=== PATIENT | male | born 1960 | race Caucasian/White ===

== ENCOUNTER 2021-05-19 07:13 | Outpatient (CLI) | payer MEDICARE, MEDICAID, SELFPAY ==
[2021-05-19 07:29] VITALS: BMI 40.6
--- NOTE | 2021-05-19 07:35 | ECG_ITS ---
[facility] Test Date: 2021-05-19 Pat Name: Francisco Amaro Jr Department: Room: Gender: Male Wall [employer] Department Supervisor: : 1960 Requested By: Bhumika Hopper Order Number: [id number] Laura MD: Bhumika Hopper M.D. Interpretive Statements NAME OF STUDY: LEXISCAN SESTAMIBI STRESS TEST INDICATION: Dyspnea on exertion PROCEDURE: At the baseline, the blood pressure was 197/110 mmHg, oxygen saturation 96% with a heart rate of 59 bpm. The electrocardiogram showed normal sinus rhythm, normal axis with normal ST and T's. The Lexiscan was infused over a period of 20 seconds. A total of 0.4 milligrams of Lexiscan was infused. The stress phase was continued for a total of 5 minutes. Heart rate at the end of the stress phase was 78 bpm, oxygen saturation 95% with a blood pressure of 193/94 mmHg. The EKG at the peak infusion revealed sinus rhythm with no significant ST-T wave changes. Interpretation limited by artifact at peak stress. The study was terminated to protocol completion. Sestamibi was injected 20 seconds after the Lexiscan infusion. Blood pressure at the end of the recovery phase was 185/93 mmHg, oxygen saturation 94% with a heart rate of 71 beats per minute. CONCLUSION: 1. No significant EKG changes with the LexiScan infusion. 2. No LexiScan induced chest pain or cardiac arrhythmia. 3. Baseline hypertension with normal blood pressure and heart rate response. 4. Sestamibi/sestamibi perfusion scan pending; see separate report. Electronically Signed On 05-22-2021 18:42:11 FLAT CUTTER by Bhumika Hopper M.D. [id number]
--- NOTE | 2021-05-19 07:35 | NMCV_ITS ---
NM isadora perf SPECT r/s* [id number] Francisco Amaro Jr Age: 61 Gender: M : 1960 Exam Date: 05/19/2021 08:38 Ordering Phys: Bhumika Hopper MD ([email or web address]) Technologist: SREEKANTH Barton Exam Location: [facility] Indications: HYPERTENSION STRESS TEST Please see separate stress test report in [facility] for full findings IMAGE PROTOCOL Rest/Stress 1 Lexiscan Day Radiopharmaceutical Dose (mCi) Administration Site Administered by Rest: Tc-99m 10.6 IV SREEKANTH Whelan Sestamibi Stress:Tc-99m 33.0 IV SREEKANTH Whelan Sestamibi Rest: 19-May-2021 60 Discovery 630 Stress: 19-May-2021 30 Discovery 630 0.4mg Lexiscan. Images obtained in supine and prone position. SPECT RESULTS Technical Quality: Excellent Raw Data Analysis: Normal Image Corrections: No attenuation or motion correction applied Summed Stress Score: 10 Summed Rest Score: 4 Summed Difference Score: 6 PERFUSION FINDINGS Medium sized reversible perfusion abnormality of moderate severity of basal to apical inferior, basal to mid inferolateral, mid anterolateral montero on stress images. FUNCTIONAL RESULTS (calculated via Gated SPECT) Stress Image LV EF (%): 58 Stress EDV (mL):170 TID: 1.02 Stress ESV (mL):71 FUNCTIONAL FINDINGS: The left ventricle is normal in size. Transient Ischemia Dilatation of 1. There is normal left ventricular systolic function. The left ventricular ejection fraction is normal with a value of 58%. Possible mild hypokinesis of basal inferior wall. Increased end-diastolic volume. IMPRESSIONS 1. Medium sized reversible perfusion abnormality of moderate severity of basal to apical inferior, basal to mid inferolateral, mid anterolateral montero. 2. This likely represent ischemia in right coronary artery territory. 3. The left ventricular ejection fraction is normal with a value of 58%. 4. Possible mild hypokinesis of basal inferior wall. 5. No prior similar studies to compare. Bhumika Hopper MD (Electronically Signed) Final Date: 22 May 2021 19:00 S
[2021-05-19] MEDS: regadenoson 0.4 Mg/5 ml Syringe IVP (09:59)
[2021-05-19 10:00] VITALS: BP 185/93; PULSE 69
== END 2021-05-19 07:14 | disposition home or self-care (01) ==
LOC: CDL 07:14
PROVIDERS: PCP Family Medicine; Visit Provider Internal Medicine Cardiovascular Disease
DX: R06.09 Other forms of dyspnea (principal); I10 Essential (primary) hypertension; R94.39 Abnormal result of other cardiovascular function study
CPT/HCPCS: 78452; 93017; A9500; J2785

== ENCOUNTER → 2021-08-15 11:35 | Outpatient (BNVA) | payer MEDICARE, MEDICAID, SELFPAY | PROVIDERS: PCP Family Medicine; Referring Provider Internal Medicine Cardiovascular Disease; Visit Provider Internal Medicine Cardiovascular Disease | DX: I48.0 Paroxysmal atrial fibrillation (principal); R06.00 Dyspnea, unspecified; R06.02 Shortness of breath; R07.9 Chest pain, unspecified; Z86.79 Personal history of other diseases of the circulatory system; Z98.890 Other specified postprocedural states; I11.0 Hypertensive heart disease with heart failure; I50.32 Chronic diastolic (congestive) heart failure; Z20.822 Contact with and (suspected) exposure to COVID-19 | CPT/HCPCS: 80048; 85025; 85610; 87635 ==

== ENCOUNTER 2021-08-17 05:52 | Outpatient (CLI) | payer MEDICARE, MEDICAID, SELFPAY ==
[2021-08-17] VITALS (13 sets, daily range): BP systolic 125–163; BP diastolic 75–111; PULSE 66–91; RESP 16–28; TEMP 36.3; O2SAT 90–96; BMI 40.6
--- NOTE | 2021-08-17 06:00 | XACV_ITS ---
Exam Room: 2 Ht: 183 cm Wt: 139 kg BSA: 2.72 m2 Gender: Male : 1960 Any Known Allergies: No known allergies Exam Priority: Routine Procedure(s): Procedure Description: Diagnostic procedure Procedure Description: Coronary Angiography Diagnostic Cath Status: Elective Diagnostic Findings * Left Main has no disease. * Circumflex has no disease. * Proximal Left Anterior Descending: luminal irregularities 20% stenosis, TERESA: 3 flow. * Distal Right Coronary Artery: luminal irregularities 20% stenosis, TERESA: 3 flow. * Posterior Descending Right: minimal 30% stenosis, TERESA: 3 flow. * Coronary angiography shows right dominance. Conclusions 1. There is minimal coronary artery disease with two vessel disease. Recommendations * Continue current medical management and risk factor modification. Clinical Evaluation EBL: 5mL-10mL Procedural Details Procedure Consent Obtained. Admit Source: Out Patient. Pre-Procedure Time Out. Identified patient by full name and date of as verbalized by the patient/guarantor. Does the consent match the physician's order: Yes. Accurate & Complete Informed Consent: Yes. Inpatient/Outpatient History & Physical on Chart: Yes. If H&P is completed, is and addenduem needed: No; If yes, is the addendum complete: N/A. Visualize and Verify Site with Patient/Guarantor: N/A. Relevant Radiology Images available: N/A. The risks, benefits, and alternatives of sedation and/or procedure were discussed by physician. The patient agrees to continue. Procedure started. [facility] Clinical Fraility Score: 3: Managing Well. [employer] Indications: Worsening Angina. Chest Pain Symptom Assessment: Atypical Angina. Correct patient, site and procedure confirmed by cath team. Current diagnosis: Chest Pain, Abnormal stress test. PERRLA. Strong, equal hand bodily injury adjuster bilaterally. Lungs clear x 5 lobes. IV Site on Arrival: 20 gauge in the left anticubital. IV Fluids: 0.9% NaCl at KVO. 550 mL infused prior to general laborer. Pre Procedural Pulses: bilateral radial was 2+. Pre Procedural Pulses: bilateral posterior tibial was 1+. Pre Procedural Pulses: bilateral dorsalis pedis was 1+. Oxygen started at 2liters/min via nasal canula. right radial was prepped with chloroprep then draped in the usual sterile fashion. right groin was prepped with chloroprep then draped in the usual sterile fashion. Baseline sample Acquired. HR: 76 BPM. Physician notified. Physician arrived. Physician scrubbed in. Immediate Pre-Procedure Time Out. Correct Patient: Yes; Correct Procedure: Yes; Correct Site: Yes; Correct Patient Position: Yes; Correct Supplies: Yes; Dried Flammable Prep: Yes; Blood Products Available: No;. Lidocaine 1% infiltrated to the right radial. Arterial access obtained. A 5 israeli Jose Miguel catheter in over wire. standard wire out. Multiple views taken of right coronary artery. Catheter removed over the standard wire. A 5 israeli TIG catheter in over wire. Multiple views taken of left coronary artery. Catheter removed over the standard wire. wire removed. Post Procedure: Pulses reassessed and unchanged. PERRLA. Strong, equal hand bodily injury adjuster bilaterally. No VTE prophylaxis required. Medication's Wasted: Lidocaine 1% = 18 mL. Medication's Wasted: Nitro = 49.8 mg. Medication's Wasted: Heparin = 1000 mL. Total IV fluids: 46.4 mL. Medication's Wasted: Other = Versed1 mg. Medication's Wasted: Other = fentanyl 50 mcg. A TR Band was successful obtaining hemostatsis at the Right Radial artery insertion site. Post-op diagnosis: Normal Coronaries. Complications: None. Estimated blood loss: 5mL-10mL. Responsiveness - Normal response to verbal stimuli; alert and oriented, PERRLA. Airway - Unaffected, no intervention required; spontaneous ventilation. Circulation: W/N/L, pulses unchanged. Nausea/Vomiting: No. Procedure completed. Patient transferred by wheelchair to CPRU. Access Site Site: Right Radial artery Sheath Size: 6 Fr Hemostasis Method: TR Band Hemostasis Success: Successful Procedure Medications Start: 7:54 AM Stop: 7:54 AM Medication: Versed Amount: 1 mg Route: I.V. Start: 7:56 AM Stop: 7:56 AM Medication: Fentanyl Amount: 50 mcg Route: I.V. Start: 7:58 AM Stop: 7:58 AM Medication: Versed Amount: 1 mg Route: I.V. Start: 8:05 AM Stop: 8:05 AM Medication: Nitrogylcerin Amount: 200 mcg Route: I.A. Start: 8:11 AM Stop: 8:11 AM Medication: Versed Amount: 1 mg Route: I.V. Start: 8:11 AM Stop: 8:11 AM Medication: Heparin Amount: 5000 units Route: I.V. I, the attending physician, have reviewed and verified all procedure medications. Yes, all medications given per verbal order History/Risk Factors Hypertension: Yes Dyslipidemia: Yes Peripheral Arterial Disease (PAD): No Myocardial Infarction (AR): No Obesity: Yes Renal Disease: No Prior Interventions PCI: No CABG: No Valve Surgery: No Report Signatures Finalized by Frandy Franklin MD on 08/26/2021 02:57 PM
[2021-08-17] MEDS: diphenhydrAMINE 50 mg Capsule PO (06:33)
--- NOTE | 2021-08-17 07:52 | W.PM.OPSUD ---
Surgery/Procedure H&P Update DATE OF PROCEDURE: August 17, 2021 DATE H&P PERFORMED: 07/21/21 PRIMARY INDICATION FOR PROCEDURE: Abnormal stress test worsening of shortness of breath with angina PLANNED PROCEDURE: Operation Date: 08/17/21 07:00 Proposed Procedures p Cardiac Catheterization(Left) - Frandy Franklin MD PATIENT REASSESSED PRIOR TO SEDATION, WITH NO CHANGE NOTED: Yes AIRWAY EVAL/ANESTHESIA PLAN: ASA II and Risks, benefits & alternatives of sedation and/or procedure discussed ADDITIONAL INFORMATION: All risk and alternative for the procedure was explained. Patient understand risk for stroke major minor bleed urgent emergent bypass surgery vascular surgery hematoma pseudoaneurysm bruising arrhythmia. He has history of atrial fibrillation take Eliquis. He understand risk of bleeding with the Plavix. He is a candidate for DAPT. He would like to proceed with it
--- NOTE | 2021-08-17 08:39 | PC.NURSE ---
received pt from cath lab nurse post diagnostic [facility]. pt complains of no pain. states he hungry though. ordered breakfast. pt has tr band on right wrist with distal pulse palpable. pt and family have both been educated on restrictions of right wrist and will be continued to be educated throughout recovery. plan to dc at 3 hrs as long as band removal is successful. pt placed on monitor and will be monitored per protocol.
== END 2021-08-17 11:23 | disposition home or self-care (01) ==
PROVIDERS: PCP Family Medicine; Visit Provider Internal Medicine Cardiovascular Disease
DX: I25.10 Atherosclerotic heart disease of native coronary artery without angina pectoris (principal); E78.5 Hyperlipidemia, unspecified; E66.01 Morbid (severe) obesity due to excess calories; Z68.41 Body mass index [BMI] 40.0-44.9, adult; I48.0 Paroxysmal atrial fibrillation; Z79.01 Long term (current) use of anticoagulants; G47.33 Obstructive sleep apnea (adult) (pediatric); N40.0 Benign prostatic hyperplasia without lower urinary tract symptoms; E11.22 Type 2 diabetes mellitus with diabetic chronic kidney disease; I13.0 Hypertensive heart and chronic kidney disease with heart failure and stage 1 through stage 4 chronic kidney disease, or unspecified chronic kidney disease; N18.30 Chronic kidney disease, stage 3 unspecified; I50.32 Chronic diastolic (congestive) heart failure; Z87.891 Personal history of nicotine dependence; Z79.82 Long term (current) use of aspirin; Z79.84 Long term (current) use of oral hypoglycemic drugs
CPT/HCPCS: 36415; 93454; C1769; C1887; C1894; J1644; J2250; J3010; J3490; J7030; Q0163; Q9967

== ENCOUNTER → 2021-08-18 09:58 | Outpatient (BNVA) | payer MEDICARE, MEDICAID, SELFPAY | PROVIDERS: PCP Family Medicine; Visit Provider Internal Medicine Cardiovascular Disease | DX: Z98.890 Other specified postprocedural states (principal) | CPT/HCPCS: 80048 ==

== ENCOUNTER → 2021-10-12 09:04 | Outpatient (BNVA) | payer MEDICARE, MEDICAID, SELFPAY | PROVIDERS: PCP Family Medicine; Visit Provider Nurse Practitioner Family | DX: I11.0 Hypertensive heart disease with heart failure (principal); I50.32 Chronic diastolic (congestive) heart failure; Z87.891 Personal history of nicotine dependence; I48.91 Unspecified atrial fibrillation; Z79.01 Long term (current) use of anticoagulants | CPT/HCPCS: 99214 ==

== ENCOUNTER 2025-03-19 07:17 | Outpatient (CLI) | payer MEDICARE, MEDICAID, SELFPAY ==
--- NOTE | 2025-03-19 07:25 | USCV_ITS ---
Prem Francisco An Age: 64 Gender: M : 1960 Exam Date: 03/19/2025 07:40 Ordering Phys: Daniel Mckeon XX Technologist: Emir Bates Exam Location: [facility] Indication: acute on chronic diastolic congestive heart failure BP: 174 / 100 HR: 80 Rhythm: Sinus Technical Quality: Adequate MEASUREMENTS (Male / Female) Normal Values 2D ECHO IVS Diastolic Thickness 1.0 cm 0.6 - 1.0 / 0.6 - 0.9 cm IVS Systolic Thickness 1.4 cm LVPW Diastolic Thickness 1.0 cm 0.6 - 1.0 / 0.6 - 0.9 cm LVPW Systolic Thickness 2.0 cm LVOT Diameter 2.1 cm LV Ejection Fraction 2D Teich 62.5 % LV Ejection Fraction MOD 4C 58.3 % LV Ejection Fraction MOD 2C 75.1 % LV Ejection Fraction 2C AL 75.1 % LA Diameter 4.1 cm RA Systolic Volume 4C AL 49.0 ml RA Systolic Volume 4C MOD 47.6 ml LA Sys Volume AL 79.0 cm cubed LA Sys Volume Index AL 36.7 cm cubed/m squared Aorta at Sinotubular Diameter 2.4 cm IVC Diameter 1.7 cm M-MODE LA Ao Ratio MM 1.2 AV Cusp Separation MM 1.9 cm DOPPLER AV Peak Velocity 126.0 cm/s LVOT Peak Velocity 120.0 cm/s AV Area Cont Eq vti 3.4 cm squared AV Area Cont Eq pk 3.4 cm squared MV Peak Velocity 99.0 cm/s MV Area PHT 5.8 cm squared Mitral E to A Ratio 3.3 TV Peak Velocity 285.5 cm/s TR Peak Velocity 342.0 cm/s TR Peak Gradient 46.8 mmHg TR Mean Velocity 304.0 cm/s TR Mean Gradient 37.4 mmHg TR Velocity Time Integral 91.8 cm PV Peak Velocity 68.0 cm/s RV Ejection Time 0.2 s FINDINGS Left Ventricle Mildly increased left ventricular cavity size. Normal left ventricular systolic function. Left ventricular ejection fraction is estimated at 62%. Normal left ventricular wall thickness. LV diastolic function is indeterminate due to irregular heart rhythm. Right Ventricle Normal right ventricular size and systolic function. RVSP could not be calculated due to incomplete tricuspid regurgitation velocity profile. Right Atrium Normal right atrial size. Left Atrium Mildly increased left atrial size. Mitral Valve Mild mitral valve regurgitation. Aortic Valve No aortic valve stenosis. Trace aortic valve regurgitation. Tricuspid Valve No tricuspid valve stenosis. Pulmonic Valve No pulmonary valve stenosis. No pulmonary valve regurgitation. Pericardium No pericardial effusion. Aorta Normal size aortic root and proximal ascending aorta. IVC Normal inferior vena cava. CONCLUSIONS 1. Mildly increased left ventricular cavity size. Normal left ventricular systolic function. Left ventricular ejection fraction is estimated at 62%. 2. Mild mitral valve regugitation 3. LV diastolic function is indeterminate due to irregular heart rhythm. Daljit Pierre MD, FACC (Electronically Signed) Final Date: 21 March 2025 18:24 S
== END 2025-03-19 07:18 | disposition home or self-care (01) ==
LOC: RAD 07:19
PROVIDERS: PCP Family Medicine; Visit Provider Family Medicine
DX: I50.33 Acute on chronic diastolic (congestive) heart failure (principal); I51.7 Cardiomegaly; R93.1 Abnormal findings on diagnostic imaging of heart and coronary circulation; I34.0 Nonrheumatic mitral (valve) insufficiency
CPT/HCPCS: 93306

== ENCOUNTER → 2025-03-24 10:44 | Outpatient (BNVA) | payer MEDICARE, MEDICAID, SELFPAY | PROVIDERS: PCP Family Medicine; Referring Provider Family Medicine; Visit Provider Internal Medicine Cardiovascular Disease | DX: I48.0 Paroxysmal atrial fibrillation (principal); Z79.01 Long term (current) use of anticoagulants; Z79.82 Long term (current) use of aspirin; I11.0 Hypertensive heart disease with heart failure; I50.32 Chronic diastolic (congestive) heart failure; I71.40 Abdominal aortic aneurysm, without rupture, unspecified; G47.33 Obstructive sleep apnea (adult) (pediatric); Z99.89 Dependence on other enabling machines and devices; Z87.891 Personal history of nicotine dependence; R06.02 Shortness of breath; R07.9 Chest pain, unspecified | CPT/HCPCS: 36415; 80048; 83880; 93005; 99204 ==

== ENCOUNTER 2025-04-09 07:43 | Outpatient (CLI) | payer MEDICARE, MEDICAID, SELFPAY ==
--- NOTE | 2025-04-09 08:00 | CT_ITS ---
WS: [id number] CT ANGIOGRAPHY abdomen, with and without contrast HISTORY: AAA TECHNIQUE: CT performed with and without contrast. CT angiogram is performed during IV injection. Reformation images reviewed. All CT scans at [facility] use at least one of these dose optimization techniques: automated exposure control; mA and/or kV adjustment per patient size (includes targeted exams where dose is matched to clinical indication); or iterative reconstruction. CONTRAST: Omnipaque 350; 100 mL IV. DLP: 2274.30 mGy.cm COMPARISON: None available. Lung bases are clear. Mild enlargement of the LEFT heart chambers. Small hiatal hernia. Abdominal aorta: Patient is status endograft abdominal aorta. There are no prior studies to evaluate for interval change or enlargement of the [place] aneurysm. Good contrast opacification of the aorta. Through the central endograft there is opacification which continues into the iliac stents. Large lobulated [place] aneurysm reidentified extends over a length of 11.4 cm with a maximum anterior diameter of 8.5 cm. There is variable attenuation in the [place] aneurysm which does appear to be plaque and calcification. On the postcontrast images there is no change in the variable attenuation in the thrombus. There is no obvious extravasation of contrast external to the graft. RIGHT kidney is normal size 11.3 cm. Moderate atrophy LEFT kidney measures 8.3 cm in length with diffuse cortical thinning. There is decreased enhancement in the LEFT kidney as compared to the RIGHT. Celiac axis and SMA are patent. Small amount of plaque in the SMA. No GI tract ischemia. Hepatic steatosis and a few scattered hepatic cysts. Negative gallbladder and spleen. Minimal nodularity the LEFT adrenal gland. Normal RIGHT adrenal gland. Negative pancreas. Visualized GI tract is negative for obstruction. Diverticular disease noted in the descending colon. No adenopathy or ascites. Mild lumbar spondylosis. No fractures. CT/CT angio abdomen [id number] IMPRESSION: 1. Status post endovascular stent graft abdominal aorta with bilateral iliac a rtery extensions. No prior studies for comparison. There is no periaortic hemat meagan or evidence for endovascular leaking of the graft. Cannot evaluate for prog ression of the [place] aneurysm without a prior study. 2. Moderate atrophy LEFT kidney measuring 8.3 cm in length with diffuse cortic al thinning and decreased enhancement. 3. Normal size RIGHT kidney and enhancement. 4. Hepatic steatosis and a few small hepatic cysts. 5. Mild atherosclerosis celiac axis and SMA but no occlusion.
[2025-04-09] MEDS: iohexol 350 mg/mL 500 mL Btl (per mL) IV (08:20)
== END 2025-04-09 07:44 | disposition home or self-care (01) ==
PROVIDERS: PCP Family Medicine; Visit Provider Internal Medicine Cardiovascular Disease
DX: I71.40 Abdominal aortic aneurysm, without rupture, unspecified (principal); I51.7 Cardiomegaly; K44.9 Diaphragmatic hernia without obstruction or gangrene; N26.1 Atrophy of kidney (terminal); K76.0 Fatty (change of) liver, not elsewhere classified; K76.89 Other specified diseases of liver; E27.8 Other specified disorders of adrenal gland; K57.30 Diverticulosis of large intestine without perforation or abscess without bleeding; M47.816 Spondylosis without myelopathy or radiculopathy, lumbar region
CPT/HCPCS: 74175